=== PATIENT | male | born 1980 | race Two or more races ===

== ENCOUNTER 2016-09-28 22:30 | Emergency (ER) | payer MEDICARE, MEDICAID ==
[~2016-09-28] VITALS: Ht 167.6 cm; Wt 79.4 kg
[~2016-09-28 22:30] MED LIST: AMLO5TAB4 PO; ASPI81TA2 PO; ATOR20TA PO; CARI350T PO; CLON1TAB PO; DEXL60CA3 PO; HYDR1TAB4 PO; PANT40SU PO; PROP20TA7 PO; SULF1TAB48 PO; ZOLP10TA2 PO
--- NOTE | 2016-09-28 22:48 | NUR ---
CALLED PT IN [place], NO REPONSE
--- NOTE | 2016-09-28 23:26 | NUR ---
CALLED PT IN [place], NO REPONSE
--- NOTE | 2016-09-29 01:05 | NUR ---
CALLED PT IN [place], NO REPONSE
--- NOTE | 2016-09-29 01:48 | NUR ---
PT TO ER BED
--- NOTE | 2016-09-29 01:50 | NUR ---
PT AMBULATED TO BED #1 WITH A SLOW STEADY GAIT.
--- NOTE | 2016-09-29 02:06 | NUR ---
PT AMBULATED TO THE BATHROOM WITH A LIMP. PT STATED THAT HIS RT HIP IS THE ONE THAT BOTHERS HIM. HE HAD CORRECTIVE HIP SX 2 MONTHS AGO. PT STATED THAT THE PAIN STARTED 2 WKS AGO AND PROGRESSIVELY GOT WORSE.
--- NOTE | 2016-09-29 02:22 | NUR ---
DR CHE IS AT THE BEDSIDE SPEAKING TO THE PT.
--- NOTE | 2016-09-29 02:27 | NUR ---
XRAY IS AT THE BEDSIDE.
--- NOTE | 2016-09-29 03:20 | NUR ---
PT APPEARS TO BE SLEEPING SOUNDLY WITH NO S/S OF PAIN OR DISTRESS.
[2016-09-29] MEDS ORDERED: ACETAMINOPHEN ES 500 MG TABLET ONE (03:23)
[2016-09-29] MEDS ORDERED: ACETAMINOPHEN 325 MG TABLET PO ONE (03:30)
--- NOTE | 2016-09-29 04:02 | NUR ---
DR. CHE IS AT THE BEDSIDE SPEAKING TO THE PT RE: FINDINGS.
--- NOTE | 2016-09-29 04:14 | NUR ---
Patient discharged to home in stable condition. Written and verbal after care instructions given. Patient verbalizes understanding of instruction. PT AMBULATED OUT WITH A STEADY GAIT. VSS.
[2016-09-29 04:16] VITALS: BP 147/92
== END 2016-09-29 04:17 | disposition home or self-care (01) ==
LOC: ER 22:33
DX: M25.551 Pain in right hip (principal); G89.29 Other chronic pain; I10 Essential (primary) hypertension; Z79.82 Long term (current) use of aspirin; F10.20 Alcohol dependence, uncomplicated
CPT/HCPCS: 73502; 99284; A4606; 73510-TC; Z7610

== ENCOUNTER 2016-09-29 08:00 | Emergency (ER) | payer MEDICARE, MEDICAID ==
[~2016-09-29] VITALS: Ht 167.6 cm; Wt 79.4 kg
[2016-09-29 08:06] VITALS: BP 150/100
[2016-09-29] MEDS ORDERED: NAPROXEN 250 MG TABLET ONE (08:58)
[2016-09-29] MEDS: NAPROXEN 250 MG TABLET PO ONE (09:02)
[2016-09-29] MEDS ORDERED: LOPERAMIDE HCL (2 MG CAP) 2 MG CAPSULE PO ONE (09:16)
[2016-09-29] MEDS: LOPERAMIDE HCL (2 MG CAP) 2 MG CAPSULE PO ONE (09:21)
== END 2016-09-29 09:27 | disposition home or self-care (01) ==
LOC: ER 08:02
DX: G89.29 Other chronic pain (principal); M25.551 Pain in right hip; I10 Essential (primary) hypertension; Z79.82 Long term (current) use of aspirin; Z88.6 Allergy status to analgesic agent
CPT/HCPCS: A4606; Z7610

== ENCOUNTER 2016-09-29 21:51 | Emergency (ER) | payer MEDICARE, MEDICAID ==
[~2016-09-29] VITALS: Ht 170.2 cm; Wt 79.4 kg
[2016-09-29 22:05] VITALS: BP 132/99
--- NOTE | 2016-09-29 22:27 | NUR ---
CALLED DR.GARY VENCES AT [phone], PHONE JUST KEPT RINGING, NO ANSWER.
== END 2016-09-29 22:43 | disposition home or self-care (01) ==
LOC: ER 21:54
DX: M25.551 Pain in right hip (principal); G89.29 Other chronic pain; I10 Essential (primary) hypertension; Z88.6 Allergy status to analgesic agent
CPT/HCPCS: A4606; Z7502; Z7610